=== PATIENT | female | born 1995 | race Caucasian/White ===

== ENCOUNTER 2020-12-31 05:32 | Inpatient (IN) | payer OTHER ==
[~2020-12-31 05:32] MED LIST: CLEOCIN HCL300 MG PO; IBUPROFEN600 MG PO; Viscous lidocaine2% TOP
[2020-12-31 07:24] LABS: HEMOGLOBIN 11.7 gm/dl (12.3-15.3); RED BLOOD COUNT 3.74 M/UL (4.00-5.10); WHITE BLOOD COUNT 10.1 K/UL (4.5-11.0)
[2020-12-31] MEDS ORDERED: PHENERGAN 25 MG25 M1 PO (09:46)
[2020-12-31] MEDS ORDERED: COLACE 100MG C100 MG PO (15:28)
[2020-12-31] MEDS ORDERED: HYDROCODON-ACE1 EAC6 PO (15:28)
[2020-12-31] MEDS ORDERED: IBUPROFEN600 MG PO (15:28)
[2021-01-01 07:09] LABS: HEMOGLOBIN 13.8 gm/dl (12.3-15.3)
== END 2021-01-01 18:12 | disposition home or self-care (01) | DRG 788 ==
LOC: OB 05:32
PROVIDERS: Obstetrics & Gynecology; ADMIT Obstetrics & Gynecology
PROC: 10D00Z1 Extraction of Products of Conception, Low, Open Approach (ICD-10-PCS; 2020-12-31)
PROC: 4A1HX4Z Monitoring of Products of Conception, Cardiac Electrical Activity, External Approach (ICD-10-PCS; principal; 2020-12-31 14:42)
DX: O99.824 Streptococcus B carrier state complicating childbirth (principal); Z3A.39 39 weeks gestation of pregnancy; Z37.0 Single live birth; O76 Abnormality in fetal heart rate and rhythm complicating labor and delivery; Z20.822 Contact with and (suspected) exposure to COVID-19; Z28.21 Immunization not carried out because of patient refusal; O99.334 Smoking (tobacco) complicating childbirth; F17.210 Nicotine dependence, cigarettes, uncomplicated
CPT/HCPCS: 36415; 80307; 81001; 82800; 85014; 85018; 85025; 87635; C9113; J0690; J1170; J1885; J2210; J2590; J2704; J3010; J7120

== ENCOUNTER 2021-08-20 18:38 | Emergency (ER) | payer OTHER ==
[~2021-08-20 18:38] MED LIST changes: +COLACE 100MG C100 MG PO; +HYDROCODON-ACE1 EAC6 PO; +PHENERGAN 25 MG25 M1 PO
== END 2021-08-20 21:55 | disposition home or self-care (01) ==
LOC: ER1 18:38
DX: J00 Acute nasopharyngitis [common cold] (principal); Z20.822 Contact with and (suspected) exposure to COVID-19
CPT/HCPCS: 99283; U0002

== ENCOUNTER → 2022-05-07 | Outpatient (CLI) | payer OTHER | LOC: GENOP 22:16 | DX: O62.9 Abnormality of forces of labor, unspecified (principal); Z3A.32 32 weeks gestation of pregnancy | CPT/HCPCS: G0463 ==

== ENCOUNTER 2022-05-21 12:58 | Outpatient (CLI) | payer OTHER ==
[2022-05-21 14:07] LABS: RED BLOOD COUNT 3.75 M/UL (4.00-5.10); WHITE BLOOD COUNT 7.6 K/UL (4.5-11.0)
== END 2022-05-21 14:16 | disposition home or self-care (01) ==
LOC: GENOP 12:58
PROVIDERS: Obstetrics & Gynecology
DX: Z01.812 Encounter for preprocedural laboratory examination (principal); O34.219 Maternal care for unspecified type scar from previous cesarean delivery
CPT/HCPCS: 81001; 85025

== ENCOUNTER 2022-05-24 09:00 | Inpatient (IN) | payer OTHER ==
[~2022-05-24] VITALS: Ht 160 cm; Wt 63.0 kg
[2022-05-24] MEDS ORDERED: COLACE 100MG C100 MG PO (12:30)
[2022-05-24] MEDS ORDERED: IBUPROFEN800 MG PO (12:30)
[2022-05-24] MEDS ORDERED: HYDROCODON-ACE1 EAC2 PO (12:30)
[2022-05-24 16:12] LABS: HEMOGLOBIN 11.3 gm/dl (12.3-15.3); RED BLOOD COUNT 3.49 M/UL (4.00-5.10); WHITE BLOOD COUNT 8.4 K/UL (4.5-11.0)
[2022-05-24 16:32] LABS: BUN/CREATININE RATIO 8 (0-10)
[2022-05-25 07:23] LABS: HEMOGLOBIN 10.4 gm/dl (12.3-15.3)
== END 2022-05-25 17:54 | disposition home or self-care (01) | DRG 788 ==
LOC: OB 09:09
PROVIDERS: ADMIT Obstetrics & Gynecology
PROC: 4A1HXCZ Monitoring of Products of Conception, Cardiac Rate, External Approach (ICD-10-PCS; 2022-05-24)
PROC: 10D00Z1 Extraction of Products of Conception, Low, Open Approach (ICD-10-PCS; principal; 2022-05-24 09:00)
DX: O34.211 Maternal care for low transverse scar from previous cesarean delivery (principal); Z3A.39 39 weeks gestation of pregnancy; Z37.0 Single live birth; O99.334 Smoking (tobacco) complicating childbirth; F17.210 Nicotine dependence, cigarettes, uncomplicated; Z28.310 Unvaccinated for COVID-19; Z82.0 Family history of epilepsy and other diseases of the nervous system; Z82.49 Family history of ischemic heart disease and other diseases of the circulatory system; O32.1XX0 Maternal care for breech presentation, not applicable or unspecified
CPT/HCPCS: 36415; 80053; 82800; 85014; 85018; 85025; C9113; J0690; J1885; J2274; J2370; J2405; J2590; J3010

== ENCOUNTER 2022-07-04 11:45 | Emergency (ER) | payer OTHER ==
[~2022-07-04 11:45] MED LIST changes: +HYDROCODON-ACE1 EAC2 PO; +IBUPROFEN800 MG PO
[2022-07-04] MEDS ORDERED: BACTRIM DS TAB1 EACH PO (14:11)
[2022-07-04] MEDS ORDERED: CEPHALEXIN500 MG PO (14:11)
[2022-07-04] MEDS ORDERED: IBUPROFEN600 MG PO (14:12)
== END 2022-07-04 14:26 | disposition home or self-care (01) ==
LOC: ER1 11:45
DX: N76.0 Acute vaginitis (principal); F17.210 Nicotine dependence, cigarettes, uncomplicated
CPT/HCPCS: 96372; 99283; J1885